=== PATIENT | female | born 1940 | race Caucasian/White ===

== ENCOUNTER 2017-08-22 16:24 | Inpatient (IN) | payer OTHER, MEDICARE ==
[~2017-08-22] VITALS: Ht 162.6 cm; Wt 78.1 kg
[~2017-08-22 16:24] MED LIST: CENTRUM SILVER1 TA1 PO; DIOVAN 160 MG160 MG PO; LIVALO2 MG PO; LOPRESSOR 25MG25 MG PO; MASON NATURAL1000 M1 PO; OSTEO BI-FLEX 21 TAB PO; VITAMIN C500 M3 PO
--- NOTE | 2017-08-22 16:48 | ED CARDIAC/CP/PALPITATIONS ---
History of Present Illness General Chief Complaint: General Adult Stated Complaint: SENT BY DR. ROGER FOR LOW HEART RATE Source: patient, family Exam Limitations: no limitations Vital Signs & Intake/Output Vital Signs & Intake/Output Vital Signs Date Time Temp Pulse Resp B/P B/P Pulse O2 O2 Flow FiO2 Mean Ox Delivery Rate 08/23 0026 97.5 39 18 143/67 96 Room Air 08/22 2259 37 16 164/71 95 Room Air 08/22 2229 37 19 198/74 97 Room Air 08/22 2020 98.2 37 16 144/66 98 Room Air 08/22 1905 38 16 158/56 96 Room Air 08/22 1831 Room Air 08/22 1642 97.1 42 18 171/67 98 ED Intake and Output 08/23 0000 08/22 1200 Intake Total Output Total Balance Patient 172 lb Weight Allergies Coded Allergies: NO KNOWN ALLERGIES (08/22/17) Reconcile Medications Ascorbate Calcium (Vitamin C) 500 MG TABLET 1 TAB PO DAILY SUPPLEMENT ( Reported) Calcium Carbonate/Vitamin D3 (Calcium 500 + D Tablet) (Unknown Strength) TABLET (Unknown Dose) PO Thursday SUPPLEMENT (Reported) Ezetimibe (Zetia) 10 MG TABLET 1 TAB PO DAILY CHOLESTEROL (Reported) Metoprolol Tartrate 25 MG TABLET 1 TAB PO DAILY HEART/BP (Reported) Multiple Vitamin (Multivitamins) 1 EACH TABLET 1 TAB PO DAILY SUPPLEMENT ( Reported) [place]-3/Dha/Epa/Fish Oil (Fish Oil 1,000 MG Softgel) (Unknown Strength) CAPSULE (Unknown Dose) PO DAILY SUPPLEMENT (Reported) Valsartan 160 MG TABLET 1 TAB PO DAILY BP (Reported) Triage Note: 77 YEAR OLD FEMALE STATES THAT SHE WAS CLEANING THIS AM , 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 PT TO ROOM Triage Nurses Notes Reviewed? yes HPI: 77 yo F PMH Hypertension presenting with bradycardia. 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 Denies associated chest pain, palpitations, SOB, dizziness, syncope, or focal neurologic Sx. Takes 25 mg metoprolol QD for HTN, took dose this AM as prescribed. Patient does not recall tick bites. (Clemente Canada MD) Past History Travel History Traveled to [place] past 21 day No Medical History Any Pertinent Medical History? 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 Yes (Clemente Canada MD) Review of Systems Review of Systems Constitutional: Reports: no symptoms. EENTM: Reports: no symptoms. Respiratory: Reports: no symptoms. Cardiovascular: Reports: see HPI. GI: Reports: no symptoms. Genitourinary: Reports: no symptoms. Musculoskeletal: Reports: no symptoms. Skin: Reports: no symptoms. Neurological/Psychological: Reports: no symptoms. Hematologic/Endocrine: Reports: no symptoms. Immunologic/Allergic: Reports: no symptoms. All Other Systems: Reviewed and Negative (Clemente Canada MD) Physical Exam Physical Exam General Appearance: well developed/nourished, no apparent distress, alert, awake Head: atraumatic Eyes: Bilateral: PERRL, EOMI. Neck: normal inspection, full range of motion Respiratory: normal breath sounds, no respiratory distress Cardiovascular: normal peripheral pulses, bradycardia Gastrointestinal: normal bowel sounds, soft, non-tender Core Measures ACS in differential dx? No CVA/TIA Diagnosis No Sepsis Present: No Sepsis Focused Exam Completed? No (Clemente Canada MD) Progress Differential Diagnosis: AMI, aortic dissection, atrial fibrillation, cholecystitis, CHF/pulm edema, costochondritis, hyperkalemia, hypovolemia, hyperthyroid, hyperventilation, intracranial hemorrhage, musculoskeletal pain, myocarditis, pancreatitis, pericarditis, pneumonia, pneumothorax, PSVT, pulmonary embolism, PUD/GERD, PVCs/PACs, respiratory failure, rib fracture, sepsis, unstable angina, V-fib/V-Tach, WPW syndrome Plan of Care: Orders Procedure Date/time Status Heart Healthy Diet 08/23 B Active TROPONIN LEVEL 08/23 0515 Complete ICU LAB BUNDLE 08/23 0500 Complete CBC WITHOUT DIFFERENTIAL 08/23 0500 Complete EKG 08/23 0500 Active Wound Care/Dressing 08/23 0302 Complete Weight 08/23 0302 Active VTE Mechanical Prophylaxis 08/23 0302 Active Vital Signs 08/23 0302 Active Turn and Reposition 08/23 0302 Complete Drains/Tubes 08/23 030 Complete Teach/Educate 08/23 0302 Active Skin Integrity Protocol 08/23 0302 Active Skin/Pressure Ulcer Assess (Sk 08/23 0302 Active Precautions 08/23 0302 Active Pain Treatment and Response 08/23 0302 Active Nutritional Intake, Monitor 08/23 0302 Active Isolation 08/23 0302 Active CIWA 08/23 0302 Complete Patient Care Conference 08/23 0302 Active Activity/Ambulation 08/23 0302 Active ACTIVE SURVEILLANCE NARES 08/23 0143 Active TROPONIN LEVEL 08/22 2300 Complete EKG 08/22 2300 Active Vital Signs 08/22 2140 Active Telemetry/Salvage Diver 08/22 214 Active Pathway - chart 08/22 213 Active House Staff 08/22 213 Active Patient Data 08/22 2135 Active Code Status 08/22 2135 Active Patient Data 08/22 2125 Active Admit to inpatient 08/22 1856 Active Intake & Output 08/22 1831 Active Add-on Test (ER Only) 08/22 1826 Active LYME TITRE 08/22 1707 Active THYROID STIMULATING HORMONE 08/22 1705 Complete PHOSPHORUS 08/22 1705 Complete TROPONIN LEVEL 08/22 1648 Complete MAGNESIUM 08/22 1648 Complete CBC WITHOUT DIFFERENTIAL 08/22 1648 Complete BASIC METABOLIC PANEL 08/22 1648 Complete EKG 08/22 1628 Active Lab Add-on Test 08/22 UNK Active VTE Mechanical Prophylaxis 08/22 UNK Active Current Medications Sig/Sandi Start time Last Medication Dose Stop Time Status Admin Enoxaparin Sodium 40 MG DAILY 08/22 2200 AC 08/22 (Lovenox) 2256 Glucagon 3 MG ONCE ONE 08/22 1830 CAN (Glucagon Inj) 08/22 1831 Acetaminophen 650 MG ONCE ONE 08/22 1715 CAN (Tylenol) 08/22 1716 Laboratory Tests 08/23/17 0515: Troponin I Cancelled 08/23/17 0515: Anion Gap 12, Estimated GFR > 60, Glucose 86, Calcium 9.1, Phosphorus 4.4, Magnesium 2.4 H, Total Bilirubin 0.3, AST 24, ALT 32, Troponin I 0.07, Albumin 3.7, CBC w Diff NO MAN DIFF REQ, RBC 4.48, MCV 86.8, MCH 28.9, MCHC 33.3, RDW 13.7, MPV 9.4, Gran % 58.1, Lymphocytes % 28.8, Monocytes % 8.6, Eosinophils % 3.8, Basophils % 0.7, Absolute Granulocytes 6.3, Absolute Lymphocytes 3.1, Absolute Monocytes 0.9 H, Absolute Eosinophils 0.4, Absolute Basophils 0.1 08/22/17 2333: Troponin I 0.03 08/22/17 1815: Lyme Disease Antibody Pending 08/22/17 1705: Anion Gap 15, Estimated GFR > 60, BUN/Creatinine Ratio 22.2, Glucose 105 H, Calcium 9.9, Phosphorus 5.2 H, Magnesium 1.9, Troponin I 0.01, TSH 0.632, CBC w Diff NO MAN DIFF REQ, RBC 4.92, MCV 86.0, MCH 28.7, MCHC 33.3, RDW 13.9, MPV 8.4 , Gran % 71.7, Lymphocytes % 20.2 L, Monocytes % 6.4, Eosinophils % 1.4, Basophils % 0.3, Absolute Granulocytes 8.6 H, Absolute Lymphocytes 2.4, Absolute Monocytes 0.8 H, Absolute Eosinophils 0.2, Absolute Basophils 0 Microbiology 08/23 0145 UPPER RESP: Surveillance Culture - RECD Physician MDM: 77 yo F PMH Hypertension presenting with bradycardia. HR 40s, BP stable, mentating well, well appearing, remainder of exam unremarkable. DDx: Medication side effect, heart block, lyme carditis, less likely BB overdose. ECG 3rd degree heart block. Troponin negative. Labs unremarkable. Discussed with Dr. Harmon (Cardiology), reccomended glucagon, pacer pads with rate set to 30, admission to ICU, will evaluate for pacer placement. D/W Dr. Roger, will admit to ICU. The plan of care was discussed with the patient who expressed agreement and understanding. Initial ED EKG: none (Nancie OREILLY,Clemente) Departure Departure Disposition: STILL A PATIENT Condition: Stable Clinical Impression Primary Impression: Third degree heart block Referrals: Murphy Roger MD (PCP/Family) Departure Forms: Customer Survey General Discharge Information Admission Note Spoke With: Murphy Roger MD Documentation of Exam: Documentation of any treatments & extenuating circumstances including Concerns Regarding Discharge (functional status, medication knowledge or non-compliance, living conditions, etc.) that warrant an admission rather than observation: [ Patient presents with a symptomatic bradycardia from home, found to have third- degree heart block, patient requires admission to hospital for close monitoring of bradycardia, further evaluation by cardiology for possible pacemaker placement., If the patient was discharged she has a high likelihood of progressive bradycardia with potential cardiovascular collapse and ] (Clemente Canada MD) Resident Co-Sign Statement Statement: ED Attending supervision documentation- [] I saw and evaluated the patient. I have also reviewed all the pertinent lab results and diagnostic results. I agree with the findings and the plan of care as documented in the Resident's documentation. x I have reviewed the ED Record and agree with the Resident's documentation. [] Additions or exceptions (if any) to the Resident's note and plan are summarized below: [] (Brady OREILLY,Bassam) Critical Care Note Critical Care Note Critical Care Time: non-applicable (Clemente Canada MD)
[2017-08-22 17:15] LABS: ABSOLUTE BASOPHIL COUNT 0 /CUMM (0.0-0.2); ABSOLUTE EOSINOPHIL COUNT 0.2 /CUMM (0.0-0.7); ABSOLUTE GRANULOCYTE CT 8.6 /CUMM (1.4-6.5); ABSOLUTE LYMPH COUNT 2.4 /CUMM (1.2-3.4); ABSOLUTE MONOCYTE COUNT 0.8 /CUMM (0.10-0.60); BASOPHIL % 0.3 % (0.0-2.0); EOSINOPHIL % 1.4 % (0-5); GRANULOCYTE % 71.7 % (42.2-75.2); HEMATOCRIT 42.4 % (37-47); MEAN CORPUSCULAR HGB 28.7 PG (27.0-31.0); MEAN CORPUSCULAR HGB CONC 33.3 G/DL (33.0-37.0); MEAN PLATELET VOLUME 8.4 FL (7.4-10.4); PLATELET COUNT 277 /CUMM (130-400); RBC DISTRIBUTION WIDTH 13.9 % (11.5-14.5); RED BLOOD CELL CT 4.92 /CUMM (4.20-5.40); WHITE BLOOD CELL COUNT 11.9 /CUMM (4.8-10.8)
[2017-08-22] MEDS ORDERED: VALSARTAN160 M1 PO (18:17)
[2017-08-22] MEDS ORDERED: METOPROLOL TART25 M1 PO (18:17)
[2017-08-22] MEDS ORDERED: VITAMIN C500 M6 PO (18:18)
[2017-08-22] MEDS ORDERED: ZETIA10 M1 PO (18:18)
[2017-08-22] MEDS ORDERED: CALCIUM 500 +1 EAC5 PO (18:18)
[2017-08-22] MEDS ORDERED: MULTIVITAMINS1 EAC9 PO (18:18)
[2017-08-22] MEDS ORDERED: FISH OIL 1,001000 MG PO (18:19)
--- NOTE | 2017-08-22 21:34 | History & Physical ---
Alexander Jasmine MD 08/22/17 1523: General Information and HPI MD Statement: I have seen and personally examined LORI POND and documented this H&P. The patient is a 77 year old F who presented with a patient stated chief complaint of [palpitations with bradycardia and 3rd degree heart block]. Source of Information: patient Exam Limitations: no limitations History of Present Illness: Patient is a 77-year-old female with a PMH significant for HTN, HLD, breast cancer status post lumpectomy and radiation who presented complaining of palpitations and low HR. Patient states that she had been cleaning her house when she began noticing palpitations she then checked her on heart rate and stated that it felt low. She then called her PCP Dr. Roger who recommended that she cut the ER. She notes that the were initially persistent but have become less noticeable. Patient reported no associated chest pain, chest discomfort, shortness of breath, dizziness, lightheadedness, nausea, vomiting, diaphoresis, loss of consciousness. Patient notes that she has had a cough and postnasal drip for several months and that it has been for approximately the past 5 days. Allergies/Medications Allergies: Coded Allergies: NO KNOWN ALLERGIES (08/22/17) Home Med list Ascorbate Calcium (Vitamin C) 500 MG TABLET 1 TAB PO DAILY SUPPLEMENT ( Reported) Calcium Carbonate/Vitamin D3 (Calcium 500 + D Tablet) (Unknown Strength) TABLET (Unknown Dose) PO Thursday SUPPLEMENT (Reported) Ezetimibe (Zetia) 10 MG TABLET 1 TAB PO DAILY CHOLESTEROL (Reported) Metoprolol Tartrate 25 MG TABLET 1 TAB PO DAILY HEART/BP (Reported) Multiple Vitamin (Multivitamins) 1 EACH TABLET 1 TAB PO DAILY SUPPLEMENT ( Reported) [place]-3/Dha/Epa/Fish Oil (Fish Oil 1,000 MG Softgel) (Unknown Strength) CAPSULE (Unknown Dose) PO DAILY SUPPLEMENT (Reported) Valsartan 160 MG TABLET 1 TAB PO DAILY BP (Reported) Past History Travel History Traveled to [place] past 21 day No Medical History Neurological: NONE EENT: NONE Cardiovascular: hypertension Respiratory: NONE Gastrointestinal: NONE Hepatic: NONE Renal: NONE Musculoskeletal: NONE Psychiatric: NONE Endocrine: NONE Blood Disorders: NONE Cancer(s): 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 Home Who Do You Live With? child Primary Language: Telugu Smoking Status: Former Smoker (5 pack years) ETOH Use: occasional use Illicit Drug Use: denies illicit drug use Functional Ability ADLs Independent: dressing, eating, toileting, bathing. Ambulation: independent IADLs Independent: shopping, housework, finances, food prep, telephone, transportation , medication admin. Review of Systems Review of Systems Constitutional: Denies: chills, fever, malaise, weakness. EENTM: Denies: blurred vision, double vision, visual changes. Cardiovascular: Reports: palpitations. Denies: chest pain, peripheral edema, syncope. Respiratory: Reports: cough. Denies: orthopnea, short of breath, sputum production. GI: Reports: no symptoms. Genitourinary: Reports: no symptoms. Musculoskeletal: Reports: no symptoms. Skin: Reports: no symptoms. Exam & Diagnostic Data Last 24 Hrs of Vital Signs/I&O Vital Signs Date Time Temp Pulse Resp B/P B/P Pulse O2 O2 Flow FiO2 Mean Ox Delivery Rate 08/23 0026 97.5 39 18 143/67 96 Room Air / 2259 37 16 164/71 95 Room Air / 2229 37 19 198/74 97 Room Air / 2021 98.2 37 16 144/66 98 Room Air / 1905 38 16 158/56 96 Room Air / 1831 Room Air / 1642 97.1 42 18 171/67 98 Intake & Output 08/23 0800 / 0000 08/22 1600 Intake Total 690 Output Total 850 Balance -160 Intake, IV 330 Intake, Oral 360 Output, Urine 850 Patient 172 lb 172 lb Weight Weight Reported by Patient Measurement Method Physical Exam General Appearance Alert, Oriented X3, Cooperative, No Acute Distress Skin Temp/Moisture Exam: Warm/Dry Sepsis Skin Exam (color): Normal for Ethnicity HEENT Atraumatic, PERRLA, EOMI, Mucous Membr. moist/pink Neck Supple, No JVD, No thryomegaly Cardiovascular bradycardic HR in mid 30s Lungs Clear to Auscultation, Normal Air Movement Abdomen Normal Bowel Sounds, Soft, No Tenderness Neurological Normal Speech, Strength at 5/5 X4 Ext, Normal Tone, Sensation Intact, Cranial Nerves 3-12 NL Extremities No Clubbing, No Cyanosis, No Edema Vascular Pulses Symmetrical Last 24 Hrs of Labs/French: Laboratory Tests 08/23/17 0515: Troponin I Cancelled 08/23/17 0515: Sodium Pending, Potassium Pending, Chloride Pending, Carbon Dioxide Pending, Anion Gap Pending, BUN Pending, Creatinine Pending, Glucose Pending, Calcium Pending, Phosphorus Pending, Magnesium Pending, Total Bilirubin Pending, AST Pending, ALT Pending, Troponin I Pending, Albumin Pending, CBC w Diff Pending, WBC Pending, RBC Pending, Hgb Pending, Hct Pending, MCV Pending, MCH Pending, MCHC Pending, RDW Pending, Plt Count Pending, MPV Pending 08/22/17 2333: Troponin I 0.03 08/22/17 1815: Lyme Disease Antibody Pending 08/22/17 1705: Anion Gap 15, Estimated GFR > 60, BUN/Creatinine Ratio 22.2, Glucose 105 H, Calcium 9.9, Phosphorus 5.2 H, Magnesium 1.9, Troponin I 0.01, TSH 0.632, CBC w Diff NO MAN DIFF REQ, RBC 4.92, MCV 86.0, MCH 28.7, MCHC 33.3, RDW 13.9, MPV 8.4 , Gran % 71.7, Lymphocytes % 20.2 L, Monocytes % 6.4, Eosinophils % 1.4, Basophils % 0.3, Absolute Granulocytes 8.6 H, Absolute Lymphocytes 2.4, Absolute Monocytes 0.8 H, Absolute Eosinophils 0.2, Absolute Basophils 0 Microbiology 08/23 0145 UPPER RESP: Surveillance Culture - RECD Diagnostic Data EKG Results third degree heart block, HR 42 Assessment/Plan Assessment: Patient is a 77-year-old female with a PMH significant for HTN, HLD, breast cancer status post lumpectomy and radiation who presented complaining of palpitations and low HR. She was found to be bradycardic and in third-degree heart block on her ECG. She has no associated symptoms of chest pain, chest discomfort, shortness of breath, nausea, vomiting, diaphoresis, dizziness, lightheadedness. She has had a chronic cough which has worsened over the past 5 days. Problem list #Third-degree AV block with bradycardia #History of hypertension, hyperlipidemia Plan -Admit to ICU -Continuous telemetry monitoring -Pacer pads in place - We'll rule out reversible causes including electrolyte abnormalities, DE, medications - Currently holding home medications and the cardiology evaluation -Patient may be candidate for pacemaker if bradycardia does not improve -DVT prophylaxis: Lovenox -CODE STATUS: Full code As Ranked By This Provider Problem List: 1. Third degree heart block Core Measures/Misc (04/05) Acute Coronary Syndrome ACS Diagnosis: No Congestive Heart Failure Congestive Heart Failure Diagnosis No Cerebrovascular Accident CVA/TIA Diagnosis: No VTE (View Protocol) VTE Risk Factors Age>40 No Mechanical VTE Prophylaxis d/t N/A MechProphylax Ordered No VTE Pharm Prophylaxis d/t NA PharmProphylax ordered Sepsis (View protocol) Sepsis Present: No Azra Su MD 08/23/17 0526: Resident Review Statement Resident Statement: examined this patient, discussed with internal communications intern Other Findings: H: Ms Pond is a pleasant 77 year old female with PMH of HTN, HLD and breast CA who presented to the emergency department today complaining of a low heart rate. Patient had just finished cleaning her home when she states that she felt her heart was beating slower. She also noted some palpitations during this time. She does take Lopressor 25 mg daily. It appears that she may have had a conversation with her primary care physician prior to being seen at the emergency department. R: On review of systems patient denies any fever, chills, nausea, vomiting. She denied any chest pain, edema, orthopnea or palpitations. E: General Appearance: well developed/nourished, no apparent distress, alert and oriented. Head: atraumatic, normal appearance Eyes: PERRLA Ears, Nose, Throat: hearing grossly normal Neck: supple, full range of motion Respiratory:Chest non-tender, no respiratory distress, diminished breath sounds. Cardiovascular: Bradycaridic, no murmurs gallops or rubs. Gastrointestinal: normal bowel sounds, soft, non-tender. Back: normal inspection, normal range of motion Extremities: normal inspection, normal range of motion. Neurologic/Psych: no motor/sensory deficits, awake, alert, oriented x 3 Skin: warm/dry I: EKG: Third Degree HB. HR 42. A/P Ms Pond is a pleasant 77 year old female with PMH of HTN, HLD and breast CA who presented to the emergency department today complaining of a low heart rate. #Symptomatic Bradycardia #Rule out ACS #History of Hypertension Monitor patients with telemetry in the ICU Bibb pads to be placed on chest of patient Trend Troponins till peak. Monitor EKG for changes Hold off all medications If bradycardia does not improve may require pacemaker. Echocardiogram once more stable. DVT prophylaxis: Lovenox CODE STATUS: Full code
[2017-08-23 06:36] LABS: ABSOLUTE BASOPHIL COUNT 0.1 /CUMM (0.0-0.2); ABSOLUTE EOSINOPHIL COUNT 0.4 /CUMM (0.0-0.7); ABSOLUTE GRANULOCYTE CT 6.3 /CUMM (1.4-6.5); ABSOLUTE LYMPH COUNT 3.1 /CUMM (1.2-3.4); ABSOLUTE MONOCYTE COUNT 0.9 /CUMM (0.10-0.60); BASOPHIL % 0.7 % (0.0-2.0); EOSINOPHIL % 3.8 % (0-5); GRANULOCYTE % 58.1 % (42.2-75.2); HEMATOCRIT 38.8 % (37-47); MEAN CORPUSCULAR HGB 28.9 PG (27.0-31.0); MEAN CORPUSCULAR HGB CONC 33.3 G/DL (33.0-37.0); MEAN CORPUSCULAR VOLUME 86.8 FL (81.0-99.0); MEAN PLATELET VOLUME 9.4 FL (7.4-10.4); PLATELET COUNT 235 /CUMM (130-400); RBC DISTRIBUTION WIDTH 13.7 % (11.5-14.5); RED BLOOD CELL CT 4.48 /CUMM (4.20-5.40); WHITE BLOOD CELL COUNT 10.9 /CUMM (4.8-10.8)
[2017-08-23 08:00] VITALS: BP 108/52
--- NOTE | 2017-08-23 08:59 | PN- Resident CRCU ---
Subjective HPI/CRCU Issues: Palpitations-third degreee AV block 24 Hour Events: Patient is seen and examined this morning, he was stable denies any palpitations chest discomfort or breathing. Vitals are stable. Patient has been evaluated by Dr. Harmon this morning, will keep her nothing by mouth for anticipation of permanent pacemaker maker placement today. Objective Vital Signs & I&O Last 8 Hrs of Vitals and I&O: Intake & Output 08/23 1600 Intake Total Output Total Balance Patient 172 lb Weight Weight Bed scale Measurement Method Exam General Appearance: well developed/nourished, no apparent distress Head: atraumatic, normal appearance Ears, Nose, Throat: normal pharynx, normal ENT inspection Respiratory: normal breath sounds, chest non-tender, no respiratory distress Cardiovascular: regular rate/rhythm, edema Gastrointestinal: normal bowel sounds, soft, non-tender Extremities: normal inspection, normal capillary refill Cranial Nerves: normal hearing, normal speech, PERRL Skin: intact, normal color Skin Temp/Moisture Exam: Warm/Dry Current Medications: Current Medications Sig/Sandi Start time Last Medication Dose Route Stop Time Status Admin Enoxaparin Sodium 0 .STK-MED ONE 08/22 2202 DC SC Enoxaparin Sodium 40 MG DAILY 08/22 220 AC 08/23 SC 0839 Glucagon 1 MG ONCE ONE 08/22 1845 DC 08/22 IV PUSH 08/22 1846 1904 Glucagon 0 .STK-MED ONE 08/22 1839 DC .ROUTE Glucagon 3 MG ONCE ONE 08/22 1830 CAN IV PUSH 08/22 1831 Magnesium Sulfate 1 GM Q2H 08/22 2145 DC 08/23 Dextrose/Water 100 ML IV 08/23 0144 0013 Ondansetron HCl 0 .STK-MED ONE 08/22 1900 DC .ROUTE Ondansetron HCl 4 MG ONCE ONE 08/22 1830 DC IV 08/22 1831 Sodium Chloride 1,000 ML Q13H 08/23 0915 DC 08/23 IV 1000 Impression/Plan Impression/Problem List Impression: Patient is 77-year-old female with a past medical history significant for hypertension, dyslipidemia and breast cancer status post a left sided lumpectomy with radiation therapy presented to the ED for the evaluation of symptomatic bradycardia(palpitations). EKG done in the ED showed complete heart block. Assessment and plan Symptomatic Bradycarida:Third-degree AV block with bradycardia * We'll keep the patient in ICU for now * Patient has been evaluated by Dr. Harmon this morning, keep her nothing by mouth for anticipation of permanent pacemaker today. ACS ruled out with 3 sets of negative troponin without any ST-T changes * Thyroid function tests are normal * Obtain echocardiogram. History of hypertension, hyperlipidemia * Continue her home medications. DVT prophylaxis subcutaneous Lovenox Patient is full code Problem List: 1. Third degree heart block Pain Ratin Pain Location: no pain at this time Tomorrow's Labs & Rationales: CBC AND BEP TOMORROW Plan DVT/Prophylaxis: mechanical, pharmacological
--- NOTE | 2017-08-23 09:04 | Cons- Cardiology ---
General Information and HPI Consulting Request Date of Consult: 08/23/17 Requested By: Sacha Cox MD History of Present Illness: Miladys is a 77 year odl female with history of hypertension, dyslipidemia and breast cancer status post a left sided lumpectomy with radiation therapy. She is active at baseline but noted palpitations while cleaning her house. She took her pulse and noted that is was very slow. In the ER the patient was found to be in complete heart block which has persisted despite being off beta blockers for about 24 hours. The patient otherwise feels well without chest discomfort, shortness of breath or lightheadedness. Allergies/Medications Allergies: Coded Allergies: NO KNOWN ALLERGIES (08/22/17) Home Med List: Ascorbate Calcium (Vitamin C) 500 MG TABLET 1 TAB PO DAILY SUPPLEMENT ( Reported) Calcium Carbonate/Vitamin D3 (Calcium 500 + D Tablet) (Unknown Strength) TABLET (Unknown Dose) PO Thursday SUPPLEMENT (Reported) Ezetimibe (Zetia) 10 MG TABLET 1 TAB PO DAILY CHOLESTEROL (Reported) Metoprolol Tartrate 25 MG TABLET 1 TAB PO DAILY HEART/BP (Reported) Multiple Vitamin (Multivitamins) 1 EACH TABLET 1 TAB PO DAILY SUPPLEMENT ( Reported) [place]-3/Dha/Epa/Fish Oil (Fish Oil 1,000 MG Softgel) (Unknown Strength) CAPSULE (Unknown Dose) PO DAILY SUPPLEMENT (Reported) Valsartan 160 MG TABLET 1 TAB PO DAILY BP (Reported) Review of Systems Review of Systems: cough Past History Travel History Traveled to [place] past 21 day No Medical History Blood Transfusion Hx: No Neurological: NONE EENT: NONE Cardiovascular: hypertension Respiratory: NONE Gastrointestinal: NONE Hepatic: NONE Renal: NONE Musculoskeletal: NONE Psychiatric: NONE Endocrine: NONE Blood Disorders: NONE Cancer(s): breast cancer (s/p radiation and lumpectomy) 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 Home Who Do You Live With? child Services at Home: None Primary Language: Japanese Smoking Status: Former Smoker (5 pack years) ETOH Use: occasional use Illicit Drug Use: denies illicit drug use Functional Ability ADLs Independent: dressing, eating, toileting, bathing. Ambulation: independent IADLs Independent: shopping, housework, finances, food prep, telephone, transportation , medication admin. Exam & Diagnostic Data Vital Signs and I&O Vital Signs Date Time Temp Pulse Resp B/P B/P Pulse O2 O2 Flow FiO2 Mean Ox Delivery Rate 08/23 0026 97.5 39 18 143/67 96 Room Air 08/22 2259 37 16 164/71 95 Room Air 08/22 2229 37 19 198/74 97 Room Air 08/22 2021 98.2 37 16 144/66 98 Room Air 08/22 1905 38 16 158/56 96 Room Air 08/22 1831 Room Air 08/22 1642 97.1 42 18 171/67 98 Intake & Output 08/23 1600 08/23 0800 08/23 0000 08/22 1600 08/22 0800 08/22 0000 Intake Total 690 Output Total 850 Balance -160 Intake, IV 330 Intake, Oral 360 Output, Urine 850 Patient 172 lb 172 lb Weight Weight Reported by Patient Measurement Method Physical Exam: General: WD/WN female in NAD; alert and oriented x 3 HEENT: NC/AT, PERRL, EOMI Neck: no JVD, no carotid bruit Heart: bradycardic with normal rhythm, no murmurs Lungs: clear bilaterally Abdomen: soft, NT, +ve bowel sounds Extremities: no edema Diagnostic Data EKG Results third degreee AV block Assessment/Plan Assessment/Plan * This patient has complete heart block with a reasonable escape rhythm. Since this has not resolved despite holding her beta bethany for 24 hours, and since no obvious reversible cause is noted, we will proceed with a permanent pacemaker. The risk and benefits have been discussed and the patient agrees to proceed. Hold Valsartan and her beta bethany. * Keep NPO and give NS at 100cc/hr. * Check a free T4 * Obtain an echocardiogram. Consult Acknowledgment - Thank you for your consult request.
--- NOTE | 2017-08-23 13:26 | RADIOLOGY REPORT ---
EXAMINATION: XR PORTABLE CHEST CLINICAL INFORMATION: In PACU. Status post pacemaker placement. COMPARISON: None TECHNIQUE: Portable AP semierect view of the chest was obtained. FINDINGS: Right atrial and right ventricular pacer leads are in place with generator box overlying the lateral upper right chest. Leads are intact and in satisfactory positioning. The cardiomediastinal silhouette is within normal limits in size. Lungs bilaterally are symmetrically expanded and clear. No focal consolidation, effusion or pneumothorax is seen. Bony structures are unremarkable. Several april are seen projected in the left axilla. IMPRESSION: Pacemaker in place with leads in right atrium and right ventricle. No pneumothorax.
--- NOTE | 2017-08-23 13:27 | Admission Certification ---
Admission Certification Certification Statement - As attending physician, I certify that at the time of - admission, based on clinical presentation, severity of - symptoms, need for further diagnostic testing and - therapeutic interventions, and risk of adverse outcomes - without in-hospital treatment, in my clinical assessment, - this patient requires an acute hospital stay for a minimum - of two nights or longer. I have also considered psychsocial - factors such as support system, advanced age, financial - issues, cognitive issues, and failed out-patient treatments, - past re-admission history, safety of patient, and lack of - compliance as applicable. Specific rationale supporting this admission is: Low heart rate, palpitations, complete heart block and history of hypertension
--- NOTE | 2017-08-23 13:31 | PN- Att Addend ---
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 Has history of hypertension hyperlipidemia and history of breast cancer with left lumpectomy and radiation therapy the patient is on a beta bethany patient has noticed in the last couple of days some palpitations. The day of admission she took her pulse it was very low, she called me and advised her to go to the emergency room where she was found to be in complete heart block. The beta bethany was put on hold. Patient was admitted to the ICU monitored closely despite being off the beta bethany her heart rate was still low. Today she successfully had a pacemaker implantation by Dr. Harmon and now is in the recovery room in stable condition. Will check also her thyroid function tests continue observation for the next 24 hours 24 TOTALS 08/23 0000 08/22 0000 Intake Total Output Total Balance Patient 172 lb Weight Current Medications Sig/Snadi Start time Last Medication Dose Route Stop Time Status Admin Acetaminophen 650 MG ONCE ONE 08/22 1715 CAN PO 08/22 1716 Enoxaparin Sodium 0 .STK-MED ONE 08/22 2203 DC SC Enoxaparin Sodium 40 MG DAILY 08/22 220 AC 08/23 SC 0839 Glucagon 1 MG ONCE ONE 08/22 1845 DC 08/22 IV PUSH 08/22 1846 1904 Glucagon 0 .STK-MED ONE 08/22 1839 DC .ROUTE Glucagon 3 MG ONCE ONE 08/22 1830 CAN IV PUSH 08/22 183 Magnesium Sulfate 1 GM Q2H 08/22 2145 DC 08/23 Dextrose/Water 100 ML IV 08/23 0144 0013 Ondansetron HCl 0 .STK-MED ONE 08/22 1900 DC .ROUTE Ondansetron HCl 4 MG ONCE ONE 08/22 1830 DC IV 08/22 1831 Sodium Chloride 1,000 ML Q13H 08/23 0915 AC 08/23 IV 1000 Laboratory Tests 08/23/17 0515: Troponin I Cancelled 08/23/17 0515: Anion Gap 12, Estimated GFR > 60, Glucose 86, Calcium 9.1, Phosphorus 4.4, Magnesium 2.4 H, Total Bilirubin 0.3, AST 24, ALT 32, Troponin I 0.07, Albumin 3.7, Free T4 0.96, CBC w Diff NO MAN DIFF REQ, RBC 4.48, MCV 86.8, MCH 28.9, MCHC 33.3, RDW 13.7, MPV 9.4, Gran % 58.1, Lymphocytes % 28.8, Monocytes % 8.6, Eosinophils % 3.8, Basophils % 0.7, Absolute Granulocytes 6.3, Absolute Lymphocytes 3.1, Absolute Monocytes 0.9 H, Absolute Eosinophils 0.4, Absolute Basophils 0.1 08/22/17 2333: Troponin I 0.03 08/22/17 1815: Lyme Disease Antibody Pending 08/22/17 1705: Anion Gap 15, Estimated GFR > 60, BUN/Creatinine Ratio 22.2, Glucose 105 H, Calcium 9.9, Phosphorus 5.2 H, Magnesium 1.9, Troponin I 0.01, TSH 0.632, CBC w Diff NO MAN DIFF REQ, RBC 4.92, MCV 86.0, MCH 28.7, MCHC 33.3, RDW 13.9, MPV 8.4 , Gran % 71.7, Lymphocytes % 20.2 L, Monocytes % 6.4, Eosinophils % 1.4, Basophils % 0.3, Absolute Granulocytes 8.6 H, Absolute Lymphocytes 2.4, Absolute Monocytes 0.8 H, Absolute Eosinophils 0.2, Absolute Basophils 0 Vital Signs Date Time Temp Pulse Resp B/P B/P Pulse O2 O2 Flow FiO2 Mean Ox Delivery Rate 08/23 0800 98.7 38 20 108/52 92 Room Air 08/23 0026 97.5 39 18 143/67 96 Room Air 08/22 2259 37 16 164/71 95 Room Air 08/22 2229 37 19 198/74 97 Room Air 08/22 2021 98.2 37 16 144/66 98 Room Air 02 1905 38 16 158/56 96 Room Air 08/22 1831 Room Air 08/22 1642 97.1 42 18 171/67 98
[2017-08-23 14:03] VITALS: BP 120/58
--- NOTE | 2017-08-23 15:27 | RADIOLOGY REPORT ---
EXAMINATION:\H\ \N\XR CHEST CLINICAL INFORMATION: Right pacemaker COMPARISON: Spot images obtained earlier same day TECHNIQUE: Frontal view of the chest was obtained. FINDINGS: Dual lead pacer noted with leads intact. Lungs clear. No pneumothorax. Cardiac silhouette mediastinum pulmonary vascularity normal. Clips noted in the left axilla. IMPRESSION: No acute disease. Pacemaker noted
[2017-08-24 00:40] VITALS: BP 150/74
[2017-08-24 07:07] VITALS: BP 132/64
--- NOTE | 2017-08-24 07:45 | PN- Housestaff ---
Subjective Follow-up For: Symptomatic Bradycarida:Third-degree AV block with bradycardia(S/P permanent pacemaker) Tele-Events Since Last Visit: normal sinus rhythm no overnight events on telemetry floor. Subjective: sunshine is seen and examined this morning, he was stable denies any palpitations chest discomfort or breathing. Vitals are stable. Patient had a permanent pacemaker placed yesterday and tolerated the procedure well still has some soreness around her surgical site. Patient has been evaluated by Dr. Harmon this morning we will discontinue metoprolol started the patient on low-dose valsartan 80 mg, if patient remains stable will discharge the patient later during the day., Review of Systems Constitutional: Denies: diaphoresis, fever, malaise. EENTM: Denies: blurred vision, double vision, visual changes. Cardiovascular: Denies: chest pain, edema, orthopena, palpitations. Respiratory: Denies: cough, hemoptysis, orthopnea, short of breath. Gastrointestinal: Denies: abdominal pain, bloating, constipation. Genitourinary: Denies: dysuria, frequency, hematuria. Musculoskeletal: Denies: gout, joint pain, joint swelling. Objective Last 24 Hrs of Vital Signs/I&O Vital Signs Date Time Temp Pulse Resp B/P B/P Pulse O2 O2 Flow FiO2 Mean Ox Delivery Rate 08/24 0800 Room Air / 0707 98.8 61 22 132/64 91 Room Air / 0040 98.6 69 22 150/74 96 Room Air 02/ 1403 97.2 64 22 120/58 96 Room Air Intake & Output / 1600 /05 0800 02/05 0000 Intake Total 300 400 Output Total Balance 300 400 Intake, IV 100 Intake, Oral 300 300 Physical Exam General Appearance: Alert, Oriented X3 Skin: No Rashes, No Breakdown Skin Temp/Moisture Exam: Warm/Dry Assessment/Plan Assessment: Patient is 77-year-old female with a past medical history significant for hypertension, dyslipidemia and breast cancer status post a left sided lumpectomy with radiation therapy presented to the ED for the evaluation of symptomatic bradycardia(palpitations). EKG done in the ED showed complete heart block. Assessment and plan Symptomatic Bradycarida:Third-degree AV block with bradycardia * We'll keep the patient in ICU for now * ACS ruled out with 3 sets of negative troponin without any ST-T changes. * Patient had a permanent pacemaker placed yesterday and tolerated the procedure well still has some soreness around her surgical site. * Patient has been evaluated by Dr. Harmon this morning, as per recommendation patient is stable to be discharged home, will follow with Dr. Harmon as an outpatient. * Thyroid function tests are normal * echocardiogram will be done as an outpatient History of hypertension, hyperlipidemia * we will discontinue metoprolol started the patient on low-dose valsartan 80 mg , if patient remains stable will discharge the patient later during the day., DVT prophylaxis subcutaneous Lovenox Patient is full code Problem List: 1. Third degree heart block Pain Ratin Pain Location: no Pain Goal: Remain pain free Pain Plan: prn percocet Tomorrow's Labs & Rationales: no need of labs as pt will be discharged today
[2017-08-24 08:09] LABS: ABSOLUTE BASOPHIL COUNT 0 /CUMM (0.0-0.2); ABSOLUTE EOSINOPHIL COUNT 0.3 /CUMM (0.0-0.7); ABSOLUTE GRANULOCYTE CT 4.3 /CUMM (1.4-6.5); ABSOLUTE LYMPH COUNT 2.3 /CUMM (1.2-3.4); ABSOLUTE MONOCYTE COUNT 0.7 /CUMM (0.10-0.60); BASOPHIL % 0.6 % (0.0-2.0); EOSINOPHIL % 3.7 % (0-5); GRANULOCYTE % 56.3 % (42.2-75.2); HEMATOCRIT 36.1 % (37-47); MEAN CORPUSCULAR HGB 29.2 PG (27.0-31.0); MEAN CORPUSCULAR HGB CONC 33.8 G/DL (33.0-37.0); MEAN CORPUSCULAR VOLUME 86.5 FL (81.0-99.0); MEAN PLATELET VOLUME 8.9 FL (7.4-10.4); PLATELET COUNT 194 /CUMM (130-400); RBC DISTRIBUTION WIDTH 14.2 % (11.5-14.5); RED BLOOD CELL CT 4.17 /CUMM (4.20-5.40); WHITE BLOOD CELL COUNT 7.7 /CUMM (4.8-10.8)
--- NOTE | 2017-08-24 09:40 | PN- Cardiology ---
Subjective Subjective: * Doing well following pacemaker placement. Mild incisional discomfort. * 100% paced rhythm Objective Vital Signs and I&Os Vital Signs Date Time Temp Pulse Resp B/P B/P Pulse O2 O2 Flow FiO2 Mean Ox Delivery Rate 08/24 08 Room Air 08/24 0707 98.8 61 22 132/64 91 Room Air 08/24 0040 98.6 69 22 150/74 96 Room Air 08/23 1403 97.2 64 22 120/58 96 Room Air Intake & Output 08/24 1600 08/24 0808/24 0000 08/23 1600 08/23 0000 Intake Total 300 400 900 690 Output Total 900 850 Balance 300 400 0 -160 Intake, IV 100 700 330 Intake, Oral 300 300 200 360 Output, Urine 900 850 Patient 172 lb 172 lb Weight Weight Bed scale Measurement Method Physical Exam: General: WD/WN female in NAD; alert and oriented x 3 HEENT: NC/AT, PERRL, EOMI Neck: no JVD, no carotid bruit Heart: regular rate and rhythm, no murmurs Chest: incision looks good Lungs: clear bilaterally Abdomen: soft, NT, +ve bowel sounds Extremities: no edema Assessment/Plan Assessment/Plan * Patient is doing well. We will discharge her to home with follow up in the office in one week. Discharge on percocet 1-2 tabs PO BID for 3 days PRN. * Stop Metoprolol and decrease Valsartan to 80mg daily. Continue telemetry? No
--- NOTE | 2017-08-24 10:39 | PN- Att Addend ---
Attending Addendum Attending Brief Note Patient looking and feeling much better, echocardiogram in progress vital signs are stable pulse in the low 60s. Tolerated the pacemaker insertion well. Patient has no fever no other changes on physical. Blood pressure medications being adjusted by cardiology and if okay with plate cutter hopefully we can discharge the patient later on today. 24 TOTALS 08/24 0000 08/23 0000 Intake Total 1989 Output Total 1750 Balance 240 Intake, IV 1130 Intake, Oral 860 Output, Urine 1750 Patient 172 lb 172 lb Weight Weight Bed scale Measurement Method Current Medications Sig/Sandi Start time Last Medication Dose Route Stop Time Status Admin Acetaminophen 1,000 MG Q8P PRN 08/23 1845 AC 08/24 N/A 1 UNIT IV 0746 Enoxaparin Sodium 40 MG DAILY 08/22 220 AC 08/23 SC 0839 Fentanyl Citrate 100 MCG .STK-MED ONE 08/23 1114 DC IM 08/23 1115 Ondansetron HCl 4 MG .STK-MED ONE 08/23 1114 DC IM 08/23 1115 Sodium Chloride 1,000 ML Q13H 08/23 0915 DC 08/23 IV 1000 Laboratory Tests 08/24/17 0650: Anion Gap 11, Estimated GFR > 60, BUN/Creatinine Ratio 17.1, CBC w Diff NO MAN DIFF REQ, RBC 4.17 L, MCV 86.5, MCH 29.2, MCHC 33.8, RDW 14.2, MPV 8.9, Gran % 56.3, Lymphocytes % 30.1, Monocytes % 9.3, Eosinophils % 3.7, Basophils % 0.6, Absolute Granulocytes 4.3, Absolute Lymphocytes 2.3, Absolute Monocytes 0.7 H, Absolute Eosinophils 0.3, Absolute Basophils 0 08/23/17 0515: Troponin I Cancelled 08/23/17514: Anion Gap 12, Estimated GFR > 60, Glucose 86, Calcium 9.1, Phosphorus 4.4, Magnesium 2.4 H, Total Bilirubin 0.3, AST 24, ALT 32, Troponin I 0.07, Albumin 3.7, Free T4 0.96, CBC w Diff NO MAN DIFF REQ, RBC 4.48, MCV 86.8, MCH 28.9, MCHC 33.3, RDW 13.7, MPV 9.4, Gran % 58.1, Lymphocytes % 28.8, Monocytes % 8.6, Eosinophils % 3.8, Basophils % 0.7, Absolute Granulocytes 6.3, Absolute Lymphocytes 3.1, Absolute Monocytes 0.9 H, Absolute Eosinophils 0.4, Absolute Basophils 0.1 08/22/17 2333: Troponin I 0.03 08/22/17 181: Lyme Disease Antibody Pending 08/22/17 1705: Anion Gap 15, Estimated GFR > 60, BUN/Creatinine Ratio 22.2, Glucose 105 H, Calcium 9.9, Phosphorus 5.2 H, Magnesium 1.9, Troponin I 0.01, TSH 0.632, CBC w Diff NO MAN DIFF REQ, RBC 4.92, MCV 86.0, MCH 28.7, MCHC 33.3, RDW 13.9, MPV 8.4 , Gran % 71.7, Lymphocytes % 20.2 L, Monocytes % 6.4, Eosinophils % 1.4, Basophils % 0.3, Absolute Granulocytes 8.6 H, Absolute Lymphocytes 2.4, Absolute Monocytes 0.8 H, Absolute Eosinophils 0.2, Absolute Basophils 0 Microbiology 08/23 0145 UPPER RESP: Surveillance Culture - COMP Vital Signs Date Time Temp Pulse Resp B/P B/P Pulse O2 O2 Flow FiO2 Mean Ox Delivery Rate 08/24 0800 Room Air 08/24 0707 98.8 61 22 132/64 91 Room Air 08/24 0040 98.6 69 22 150/74 96 Room Air 08/23 1403 97.2 64 22 120/58 96 Room Air
[2017-08-24] MEDS ORDERED: VALSARTAN80 M1 PO (11:22)
[2017-08-24] MEDS ORDERED: PERCOCET 5-3251 EACH PO (11:22)
--- NOTE | 2017-08-24 11:25 | Discharge Summary ---
Visit Information Visit Dates Admission Date: 08/22/17 Discharge Date: 08/24/17 Hospital Course Course Attending Physician: Murphy Roger MD Primary Care Physician: Murphy Roger MD Hospital Course: Patient is 77-year-old female with a past medical history significant for hypertension, dyslipidemia and breast cancer status post a left sided lumpectomy with radiation therapy presented to the ED for the evaluation of symptomatic bradycardia(palpitations). Vitals on admission temperature 97.1, pulse of 42, respiratory rate 18, blood pressure 171/67 on room air Pertinent labs on admission leukocytosis: 11.9, H&H stable, slightly elevated BUN 20. First set of troponin negative: The 0.01 EKG done in the ED showed complete heart block. Patient was admitted to ICU for the following reasons. Symptomatic Bradycarida:Third-degree AV block with bradycardia: Patient was initially kept in the ICU. Beta bethany was held He remained asymptomatic, with pacer pads on. ACS was ruled out with 3 sets of negative troponin without any ST-T changes.Thyroid function tests came normal. She was evaluated by Faustino, and had a permanent pacemaker placed. Patient remains stable after the procedure she was discharged home with a follow-up with Dr. Harmon as an outpatient. History of hypertension, hyperlipidemia: Metoprolol was discontinued patient will discharge on decreased dose of valsartan 80 mg daily DVT prophylaxis subcutaneous Lovenox Patient is full code Allergies: Coded Allergies: NO KNOWN ALLERGIES (08/22/17) Disposition Summary Disposition Principal Diagnosis: Symptomatic Bradycarida:Third-degree AV block with bradycardia Additional Diagnosis: History of hypertension, hyperlipidemia Discharge Disposition: home or self care Discharge Instructions General Discharge Information Code Status: Full Code Patient's Diet: Regular diet Patient's Activity: As tolerated Follow-Up Instructions/Appts: 1. Please follow-up with your primary care physician within 1-2 weeks of discharge 2. Please follow-up with Dr. Harmon within 1-2 weeks after discharge. Medications at Discharge Discharge Medications: Stop taking the following medications: Metoprolol Tartrate (Metoprolol Tartrate) 25 MG TABLET ORAL DAILY Qty = 90 Valsartan (Valsartan) 160 MG TABLET ORAL DAILY Qty = 90 Continue taking these medications: Multiple Vitamin (Multivitamins) 1 EACH TABLET 1 Tablet ORAL DAILY Comments: NOT GIVEN IN HOSPITAL Ezetimibe (Zetia) 10 MG TABLET 1 Tablet ORAL DAILY Qty = 90 Comments: NOT GIVEN IN HOSPITAL Calcium Carbonate/Vitamin D3 (Calcium 500 + D Tablet) (Unknown Strength) TABLET Unknown Dose ORAL THURSDAY, THURSDAY AND THURSDAY Comments: NOT GIVEN IN HOSPITAL Ascorbate Calcium (Vitamin C) 500 MG TABLET 1 Tablet ORAL DAILY Comments: NOT GIVEN IN HOSPITAL [place]-3/Dha/Epa/Fish Oil (Fish Oil 1,000 MG Softgel) (Unknown Strength) CAPSULE Unknown Dose ORAL DAILY Comments: NOT GIVEN IN HOSPITAL Start taking the following new medications: Valsartan (Valsartan) 80 MG TABLET 1 Tablet ORAL DAILY Qty = 30 No Refills Comments: NOT GIVEN IN HOSPITAL Oxycodone HCl/Acetaminophen (Percocet 5-325 MG Tablet) 5 MG-325 MG TABLET 1 Tablet ORAL EVERY 8 HOURS NEEDED as needed for PAIN Qty = 12 No Refills Comments: NOT GIVEN IN HOSPITAL Copies To: Acacia OREILLY,Murphy
--- NOTE | 2017-08-24 11:32 | Patient Discharge Instructions ---
Discharge Instructions General Discharge Information You were seen/treated for: Symptomatic Bradycarida:Third-degree AV block with bradycardia(S/P permanent pacemaker) Special Instructions: 1. Please follow-up with your primary care physician within 1-2 weeks of discharge 2. Please follow-up with Dr. Harmon within 1-2 weeks after discharge. Diet Recommended Diet: Heart Healthy Activity Activity Self Limited: Yes Acute Coronary Syndrome Inclusion Criteria At DC or during hospital stay patient has or had the following: ACS DIAGNOSIS No Discharge Core Measures Meds if any: Prescribed or Continued at Discharge Meds if any: NOT Prescribed or Continued at Discharge Congestive Heart Failure Inclusion Criteria At DC or during hospital stay patient has or had the following: CHF DIAGNOSIS No Discharge Core Measures Meds if any: Prescribed or Continued at Discharge Meds if any: NOT Prescribed or Continued at Discharge Cerebrovascular accident Inclusion Criteria At DC or during hospital stay patient has or had the following: CVA/TIA Diagnosis No Discharge Core Measures Meds if any: Prescribed or Continued at Discharge Meds if any: NOT Prescribed or Continued at Discharge Venous thromboembolism Inclusion Criteria VTE Diagnosis No VTE Type NONE VTE Confirmed by (Test) NONE Discharge Core Measures - Per Current guidelines, there needs to be overlap - treatment for the first 5 days of Warfarin therapy. - If discharged on Warfarin prior to 5 days of - overlap therapy, the patient will need to be - assessed for post discharge needs including - *Post discharge parental anticoagulation - *Warfarin and/or parental anticoagulation education - *Follow up date to check INR post discharge At least 5 days overlap therapy as Inpatient No Meds if any: Prescribed or Continued at Discharge Note: Overlap Therapy is Warfarin and Anticoagulant Meds if any: NOT Prescribed or Continued at Discharge
--- NOTE | 2017-08-24 23:38 | ECHOCARDIOGRAM REPORT ---
LORI POND Age: 77 : 1940 Gender: F Exam Date: 08/24/2017 09:38 Exam Location: [facility] Ht (in): 64 Wt (lb): 172 BSA: 1.90 BP: 132 / 64 Ordering Physician: Uriel Beck MD Referring Physician: Uriel Beck MD Technologist: Estuardo Moise RDCS Room Number: Indications: SVT Rhythm: ventricular paced Technical Quality: good FINDINGS Left Ventricle Normal left ventricular size, wall thickness and systolic function with no obvious regional wall motion abnormalities. Normal left ventricular diastolic filling pattern for age. The ejection fraction is visually estimated at 70%. Right Ventricle The right ventricle is normal in size and function. A pacemaker wire is noted in the RV chamber. Right Atrium The right atrium is normal in size. Left Atrium The left atrium is normal in size. The interatrial septum is intact. Mitral Valve The mitral valve is normal in structure and function. There is mild mitral regurgitation. Aortic Valve Structurally normal aortic valve without significant sclerosis or stenosis. There is no aortic regurgitation. Tricuspid Valve The tricuspid valve is normal in structure and function. There is trace tricuspid regurgitation. Pulmonary artery systolic pressure is normal. Pulmonic Valve Structurally normal pulmonic valve. There is trace pulmonic regurgitation. Pericardium Normal pericardium without effusion. No pleural effusion. Great Vessels Normal aortic root dimension. The aortic arch and great vessels are well seen and are normal. CONCLUSIONS 1. Normal EF of 70%. 2. Pacemaker lead noted in the right ventricle. 3. Mild mitral regurgitation. 4. Trace tricupid regurgitation. 5. Trace pulmonic regurgitation. Bruno Harmon M.D. (Electronically Signed) Final Date: 24 August 2017 23:38 MEASUREMENTS (Male / Female) Normal Values 2D ECHO LV Diastolic Diameter PLAX 4.7 cm 4.2 - 5.9 / 3.9 - 5.3 cm LV Systolic Diameter PLAX 2.5 cm 2.1 - 4.0 cm LV Fractional Shortening PLAX 46.8 % 25 - 46 % LV Ejection Fraction 2D Teich 78.2 % IVS Diastolic Thickness 0.9 cm LVPW Diastolic Thickness 0.9 cm LV Relative Wall Thickness 0.4 RV Internal Dim ED PLAX 3.1 cm 1.9 - 3.8 cm LVOT Diameter 1.8 cm Aortic Root Diameter 2.4 cm LA Systolic Diameter LX 3.6 cm 3.0 - 4.0 / 2.7 - 3.8 cm LA Volume 50.0 cm 18 - 58 / 22 - 52 cm Ascending Aorta Diameter 2.6 cm DOPPLER AV Peak Velocity 179.0 cm/s AV Peak Gradient 12.8 mmHg AV Mean Velocity 125.0 cm/s AV Mean Gradient 7.0 mmHg AV Velocity Time Integral 43.5 cm LVOT Peak Velocity 102.0 cm/s LVOT Peak Gradient 4.2 mmHg LVOT Mean Velocity 59.3 cm/s LVOT Mean Gradient 2.0 mmHg LVOT Velocity Time Integral 23.0 cm LVOT Stroke Volume 58.5 cm AV Area Cont Eq vti 1.3 cm AV Area Cont Eq pk 1.5 cm MV Peak Velocity 101.0 cm/s MV Peak Gradient 4.1 mmHg MV Mean Velocity 70.7 cm/s MV Mean Gradient 2.0 mmHg Mitral E Point Velocity 73.1 cm/s Mitral A Point Velocity 88.8 cm/s Mitral E to A Ratio 0.8 MV PHT Velocity 99.5 cm/s MV Deceleration [place] 396.0 cm/s MV Pressure Half Time 75.4 ms MV Area PHT 2.9 cm MV Deceleration Time 264.0 ms MR Peak Velocity 549.0 cm/s MR Peak Gradient 120.6 mmHg TR Peak Velocity 238.0 cm/s TR Peak Gradient 22.7 mmHg Right Atrial Pressure 5.0 mmHg Pulmonary Artery Systolic Pressu 27.7 mmHg Right Ventricular Systolic Press 27.7 mmHg PV Peak Velocity 113.0 cm/s PV Peak Gradient 5.1 mmHg PV Mean Velocity 71.3 cm/s PV Mean Gradient 2.0 mmHg PV Velocity Time Integral 23.3 cm LV E' Lateral Velocity 7.8 cm/s Mitral E to LV E' Lateral Ratio 9.4 LV E' Septal Velocity 8.5 cm/s Mitral E to LV E' Septal Ratio 8.6
--- NOTE | 2017-08-26 15:28 | Proc Note Cardiology ---
Cardiology Procedure Procedure Date: 08/23/17 Cardiology Procedure(s): [employer] Dual Chamber MRI Safe Pacemaker Pre-Operative Diagnosis: complete heart block Post-Operative Diagnosis: complete heart block Estimated Blood Loss: scant Anesthesia: local monitored anesthesi Procedure Findings: History: This patient is a 77 year old female with history of hypertension and left sided mastectomy with radiation therapy who presented to the ER with complaints of a slow heart rate and was noted to be in complete heart block. This did not resolved with discontinuation of her Metoprolol and therefore a permanent pacemaker was recommended. Procedure: This patient was prepped and draped in the usual sterile fashion after having obtained informed consent. She was administered 2 gm of Ancef as prophylaxis against infection. An incision was then made in the right subclavicular space where a pacemaker pocket was dissected out. The right subclavian vein was then accessed via the [employer] techinique and a 7F sheath was placed in the vein. Two wires were placed and the sheath then removed and placed over a single wire with retention of the remaining wire for later use. The right ventricular lead was then placed in the right ventricular apex and pacing parameters were checked and confirmed to be good. We then removed the sheath and placed a second 7F sheath in the left subclavian vein and through this passed the lead to the right atrial appendage. Pacing parameters were again checked and confirmed to be within acceptable, or better, limits. The sheath was removed and the leads were sewn into place and the pacemaker was then placed in the pocket after attaching both leads. The pacemaker pocket was sutured closed with three layers of absorbable suture. The pacemaker was again tested and the patient was brought to recovery where a chest X-ray and 12 lead ECG were obtained. Pacemaker: [employer] Advisa MRI safe Pacemaker Model # [id number] with serial # [id number] Atrial Lead: Model # [id number] Serial # [id number] Voltage: 0.8V Current: 0.9mA Impedance: 702 Ohms P wave: 2.8mV Ventricular Lead: Model # 5076-52 Serial # [id number] Voltage: 0.5V Current: 0.5mA Impedance: 875 Ohms R wave: 8.0 The patient tolerated this procedure well without complications.
== END 2017-08-24 14:40 | DRG 244 ==
LOC: ERH 16:24 → 1NO 18:56 → ERHI 18:56 → ENRESERV 23:50 → CRI 08-23 01:32 → ENTRNSPT 08-23 13:30 → CMPTRNSPT 08-23 13:54 → 1NO 08-23 18:30 → ENTRNSPT 08-24 13:43 → EDTRNSPT 08-24 14:29 → EDTRNSPTSTS 08-24 14:29 → 1NO 08-24 14:40 → CMPTRNSPT 08-24 14:52 → DELTRNSPT 08-24 15:03
PROVIDERS: Dermatology; Student in an Organized Health Care Education/Training Program
PROC: 0JH606Z Insertion of Pacemaker, Dual Chamber into Chest Subcutaneous Tissue and Fascia, Open Approach (ICD-10-PCS; principal; 2017-08-23)
PROC: 02H63JZ Insertion of Pacemaker Lead into Right Atrium, Percutaneous Approach (ICD-10-PCS; 2017-08-23)
PROC: 02HK3JZ Insertion of Pacemaker Lead into Right Ventricle, Percutaneous Approach (ICD-10-PCS; 2017-08-23)
DX: I44.2 Atrioventricular block, complete (principal); E78.5 Hyperlipidemia, unspecified; I10 Essential (primary) hypertension; Z85.3 Personal history of malignant neoplasm of breast; Z92.3 Personal history of irradiation; Z87.891 Personal history of nicotine dependence
CPT/HCPCS: 1NSP; 86618; ERO; 36415; 71045; 82436; 93005; 93010; 93306; 96365; 99291; C1785; C1898; J0131; J0690; J1610; J1650; J2405